=== PATIENT | male | born 1945 | race Caucasian/White ===

== ENCOUNTER 2017-08-16 16:20 | Emergency (ER) | payer MEDICARE, MEDICAID ==
[2017-08-16 16:37] VITALS: BP 138/90
[2017-08-16] MEDS ORDERED: Ketorolac 60 MG/2 ML SDV IM ONE (17:18)
[2017-08-16] MEDS ORDERED: Cyclobenzaprine 10 MG Tab PO ONE (17:25)
--- NOTE | 2017-08-16 18:02 | EDM.PDOC ---
ED HPI GENERAL MEDICAL PROBLEM - General Chief Complaint: Back Pain or Injury Stated Complaint: L FLANK PAIN Time Seen by Provider: 08/16/17 17:58 Source of Information: Reports: Patient, Family History Limitations: Reports: No Limitations - History of Present Illness INITIAL COMMENTS - FREE TEXT/NARRATIVE: pt arrived with pain in the left laterl chest. He fell and hit the left chest on the coffee table. He has a definte bruise present. Onset: Other (pt fell last nite. ) Duration: Hour(s): Location: Reports: Chest Associated Symptoms: Reports: Chest Pain, Other (pain with deep breathing. ) Left Back Pain Score (Numeric/FACES): 8 - Related Data Allergies Allergy/AdvReac Type Severity Reaction Status Date / Time Penicillins AdvReac Syncope Verified 03/07/16 08:59 Home Meds: Home Meds Gabapentin [Neurontin] 400 mg PO 5XDAY 03/06/16 [History] Hydrochlorothiazide 25 mg PO DAILY 03/06/16 [History] Metoprolol Tartrate 50 mg PO BID 03/06/16 [History] Past Medical History HEENT History: Reports: Impaired Vision Cardiovascular History: Reports: Hypertension Genitourinary History: Reports: Prostate Disorder Musculoskeletal History: Reports: Arthritis, Back Pain, Chronic Oncologic (Cancer) History: Reports: Leukemia Other Oncologic History: 2004 [facility] - Infectious Disease History Infectious Disease History: Reports: Chicken Pox - Past Surgical History GI Surgical History: Reports: Hernia Repair/Other Musculoskeletal Surgical History: Reports: Other (See Below) Other Musculoskeletal Surgeries/Procedures:: back surgery x 2 Social & Family History - Tobacco Use Smoking Status *Q: Light Tobacco Smoker Years of Tobacco use: 30 Packs/Tins Daily: 0.5 Used Tobacco, but Quit: Yes Month Tobacco Last Used: October, Second Hand Smoke Exposure: No - Caffeine Use Caffeine Use: Reports: Coffee - Alcohol Use Days Per Week of Alcohol Use: 2 Number of Drinks Per Day: 3 Total Drinks Per Week: 6 - Recreational Drug Use Recreational Drug Use: No ED ROS GENERAL - Review of Systems Review Of Systems: See Below Constitutional: Reports: No Symptoms HEENT: Reports: No Symptoms Respiratory: Reports: No Symptoms Cardiovascular: Reports: No Symptoms Endocrine: Reports: No Symptoms GI/Abdominal: Reports: No Symptoms : Reports: No Symptoms Musculoskeletal: Reports: Other ( Pain in left chest in the area of the bruis) Skin: Reports: No Symptoms Neurological: Reports: No Symptoms Psychiatric: Reports: No Symptoms Immunologic: Reports: No Symptoms ED EXAM,LOWER BACK PAIN/INJURY - Physical Exam Exam: See Below Text/Narrative:: pt fell last nite and hit the left chest on a coffee table. Exam Limited By: No Limitations General Appearance: Alert, Anxious Ears: Normal TMs Nose: Normal Inspection Throat/Mouth: Normal Inspection Head: Atraumatic Neck: Normal Inspection Respiratory/Chest: Other ( pain in the left chest . Hurts to take a deep breath. r) Cardiovascular: Regular Rate, Rhythm GI/Abdominal: Soft, Non-Tender (Male) Exam: Deferred Rectal (Males) Exam: Deferred Back Exam: Normal Inspection Extremities: Normal Inspection Neurological: Alert, Oriented x 3 Course - Vital Signs Last Recorded V/S: Last Vital Signs Temp 36.6 C 08/16/17 16:52 Pulse 92 08/16/17 16:52 Resp 16 08/16/17 16:52 BP 138/90 08/16/17 16:52 Pulse Ox 98 08/16/17 16:52 - Orders/Labs/Meds Meds: Medications Discontinued Medications Generic Name Dose Route Start Last Admin Trade Name Freq PRN Reason Stop Dose Admin Cyclobenzaprine HCl 10 mg 08/16/17 17:25 08/16/17 17:31 Flexeril PO 08/16/17 17:26 10 mg ONETIME ONE Administration Ketorolac Tromethamine 60 mg 08/16/17 17:18 08/16/17 17:31 Toradol IM 08/16/17 17:19 60 mg ONETIME ONE Administration - Re-Assessments/Exams Free Text/Narrative Re-Assessment/Exam: 08/16/17 18:11 pt was given torodol 60mg im. His xrays show a definite fracture in the 9th rib. ,.. Departure - Departure Time of Disposition: 18:17 Disposition: Home, Self-Care 01 Condition: Fair Clinical Impression: Fractured rib - Discharge Information Instructions: Rib Fracture, [id number] Referrals: Jay Gilbert Sr, MD [Primary Care Provider] - Forms: ED Department Discharge Care Plan Goals: rib binder, encourage deep breathing, cool pack to the left rib cage area, cont same meds, tramodol 50mg q6h prn for pain.
--- NOTE | 2017-08-17 09:54 | CR ---
Ribs 2V w Chest Lt INDICATION: Pain in left rib cage area. FINDINGS: Healed or healing left seventh rib fracture. Pleural thickening left costophrenic angle wit h atelectasis in the left lung base. Chest otherwise negative.
== END 2017-08-16 19:01 | disposition home or self-care (01) ==
LOC: JP.ED 16:20
DX: S22.32XA Fracture of one rib, left side, initial encounter for closed fracture (principal); F17.210 Nicotine dependence, cigarettes, uncomplicated; I10 Essential (primary) hypertension; Z85.6 Personal history of leukemia; Z98.890 Other specified postprocedural states; Z79.899 Other long term (current) drug therapy; Z88.0 Allergy status to penicillin; W01.190A Fall on same level from slipping, tripping and stumbling with subsequent striking against furniture, initial encounter
CPT/HCPCS: 71101; 96372; 99284; A9270; J1885; 99283

== ENCOUNTER 2021-06-03 08:24 | Emergency (ER) | payer MEDICARE ==
[2021-06-03 08:53] VITALS: BP 178/96; PULSE 111
--- NOTE | 2021-06-03 10:41 | EDM.PDOC ---
ED HPI GENERAL MEDICAL PROBLEM - General Chief Complaint: Back Pain or Injury Stated Complaint: BACK PAIN Time Seen by Provider: 06/03/21 10:30 Source of Information: Reports: Patient, Family History Limitations: Reports: No Limitations - History of Present Illness INITIAL COMMENTS - FREE TEXT/NARRATIVE: 75-year-old male with a history of severe lumbosacral spine disease noted on MRI some years ago continues with chronic pain and was on 8 mg Dilaudid 4 times a day for pain. He is now been off of 3 years. He has seen the pain specialist bryan Mcdaniel apparently. Recently has been falling down as he is very unsteady on his feet. He fell few days ago and had a lumbosacral spine x-ray which showed degenerative changes apparently. He is here now today because he really cannot function because the pain is so severe with pain down his legs although that is not new. He otherwise is eating other review of systems appear to be negative. His problem is primarily with his back chronic in nature with a history of surgery at [facility] as well - Related Data Allergies Allergy/AdvReac Type Severity Reaction Status Date / Time Penicillins AdvReac Syncope Verified 06/03/21 08:53 Home Meds: Home Meds Metoprolol Tartrate 50 mg PO BID 03/06/16 [History] hydroCHLOROthiazide [Hydrochlorothiazide] 25 mg PO DAILY 03/06/16 [History] Past Medical History HEENT History: Reports: Impaired Vision Cardiovascular History: Reports: Hypertension Genitourinary History: Reports: Prostate Disorder Musculoskeletal History: Reports: Arthritis, Back Pain, Chronic Oncologic (Cancer) History: Reports: Leukemia Other Oncologic History: 2005 [facility] - Infectious Disease History Infectious Disease History: Reports: Chicken Pox - Past Surgical History GI Surgical History: Reports: Hernia Repair/Other Musculoskeletal Surgical History: Reports: Other (See Below) Other Musculoskeletal Surgeries/Procedures:: back surgery x 2 Social & Family History - Tobacco Use Tobacco Use Status *Q: Unknown Ever Used Tobacco - Caffeine Use Caffeine Use: Reports: Coffee ED ROS GENERAL - Review of Systems Review Of Systems: Comprehensive ROS is negative, except as noted in HPI. ED EXAM,LOWER BACK PAIN/INJURY - Physical Exam Exam: See Below Text/Narrative:: 75-year-old male who is sitting on the chair complaining bitterly of pain and accompanied by a friend. Vital signs are noted and okay HEENT shows eyes ears nose throat appear to be normal pupils equal round reactive to light perhaps some diminished hearing Neck is supple normal range of motion Chest is clear with a regular rate and rhythm Abdomen soft active bowel sounds Thoracic back exam is negative. He has a lumbar old scar from prior surgery. He has some point tenderness on heavy pressure in the lower lumbar area on the right. He has ecchymosis and bruising on the left buttock. He has limited range of motion with your back there Skin exam is grossly normal Neurologic he can stand and walk but unsteady on his feet and uses crutches. Course - Vital Signs Last Recorded V/S: Last Vital Signs Temp 36.6 C 06/03/21 08:58 Pulse 111 H 06/03/21 08:58 Resp 18 06/03/21 08:58 BP 178/96 H 06/03/21 08:58 Pulse Ox 97 06/03/21 08:58 - Orders/Labs/Meds Meds: Medications Discontinued Medications Generic Name Dose Route Start Last Admin Trade Name Ghanshyamq PRN Reason Stop Dose Admin Hydromorphone HCl 2 mg 06/03/21 10:50 06/03/21 10:49 Hydromorphone 2 Mg Tab PO 06/03/21 10:51 2 mg Q3H ONE Administration Hydromorphone HCl 4 mg 06/03/21 12:15 06/03/21 12:33 Hydromorphone 2 Mg Tab PO 06/03/21 12:16 4 mg Q3H ONE Administration Departure - Departure Time of Disposition: 14:40 Disposition: Home, Self-Care 01 Condition: Good Clinical Impression: Back pain of lumbosacral region with sciatica - Discharge Information Referrals: Jay Gilbert Sr, MD [Primary Care Provider] - Forms: ED Department Discharge Sepsis Event Note (ED) - Evaluation Sepsis Screening Result: No Definite Risk - Focused Exam Vital Signs: Vital Signs Temp Pulse Resp BP Pulse Ox 06/03/21 08:58 36.6 C 111 H 18 178/96 H 97 06/03/21 08:52 36.6 C 111 H 18 178/96 H 97
[2021-06-03] MEDS ORDERED: HYDROmorphone 2 MG Tab PO ONE ×2 (10:50→12:15)
--- NOTE | 2021-06-03 11:36 | CT ---
Pelvis wo Cont CLINICAL HISTORY: Fall COMPARISON: None available TECHNIQUE: Multiple contiguous axial sections were obtained from the level of the iliac crests down to the pubic symphysis without without contrast. From these images 3D reconstructions were obtained and reviewed on a dedicated and independent workstation. Auto dosage reduction and iterative reconstruction techniques employed. FINDINGS: No fracture or dislocation is identified. Patient has severe degenerative changes in the lower lumbar spine. There is some mottled sclerosis of the right ilium abutting the SI joint. Sacrum appears intact. There is periarticular spurring in the hips as well as at the pubic symphysis. No mass or hematoma is identified. IMPRESSION: No fracture Mottled sclerosis in the medial right ilium extending to the SI joint. Chronology is uncertain. Prior studies are not available at this time. This may be related to previous bone graft donor site. Moderate degenerative changes with periarticular spurring
--- NOTE | 2021-06-03 11:43 | CT ---
Lumbar Spine wo Cont CLINICAL HISTORY: Fall, pain COMPARISON: None available TECHNIQUE: Multiple contiguous axial sections were obtained of the lumbar spine without the IV infusion of contrast material This was followed by sagittal and coronal MPRs. Auto dosage reduction and iterative reconstruction techniques employed. FINDINGS: Sagittal images show the lumbar vertebral body heights to be maintained. There is severe diffuse degenerative disc disease and significant spondylosis. There is minimal retrolisthesis of L2 on L3, L3 on L4 and L5 on S1. Patient has had previous laminectomies at L4 and L5. There has been previous fusion. Patient has a mild levoscoliosis. There is moderate disc osteophyte formation at L1-2 as well as posterior element hypertrophy. This causes moderate central canal stenosis. There is also lateral recess and neural foraminal encroachment. There is disc osteophyte formation at L2-3 with facet hypertrophy causing moderate central canal stenosis and encroachment on the lateral recesses and neural foramina bilaterally. There is disc osteophyte formation at L3-4. There is also some calcification near the longitudinal ligament extending downward. This causes some central canal stenosis. There is bony encroachment on the right neural foramina. There is fusion at the L4-5 disc. There is broad-based disc protrusion at L5-S1 encroaching on the thecal sac. This also some posterior element hypertrophy causing encroachment on the neural foramina and lateral recesses bilaterally. 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 Multiple levels of central canal stenosis lateral recess and neural foraminal encroachment
== END 2021-06-03 14:54 | disposition home or self-care (01) ==
LOC: JP.ED 08:24
DX: M54.41 Lumbago with sciatica, right side (principal); I10 Essential (primary) hypertension; M19.90 Unspecified osteoarthritis, unspecified site; Z88.0 Allergy status to penicillin; Z79.899 Other long term (current) drug therapy
CPT/HCPCS: 72131; 72192; 99283; A9270

== ENCOUNTER 2024-05-18 21:29 | Emergency (ER) | payer MEDICARE ==
[2024-05-18 22:55] VITALS: BP 116/69; PULSE 82
[2024-05-18] MEDS ORDERED: Sodium Chloride 0.9% 10 ML Syringe FLUSH PRN (23:08)
[2024-05-18] MEDS: Magnesium Sulfate/Water 2 GM in Premix Bag 1 BAG IV ONE (23:27)
[2024-05-18] MEDS: Sodium Chloride 0.9% 500 ML IV ONE (23:27)
== END 2024-05-19 02:06 | disposition home or self-care (01) ==
LOC: JP.ED 21:29
DX: E86.0 Dehydration (principal); E83.42 Hypomagnesemia; F03.90 Unspecified dementia, unspecified severity, without behavioral disturbance, psychotic disturbance, mood disturbance, and anxiety; I10 Essential (primary) hypertension; Z79.891 Long term (current) use of opiate analgesic; Z79.899 Other long term (current) drug therapy; Z88.0 Allergy status to penicillin; Z91.011 Allergy to milk products; Z88.6 Allergy status to analgesic agent
CPT/HCPCS: 96365; 96366; 99284; J3475; J7040

== ENCOUNTER 2024-05-27 18:40 | Emergency (ER) | payer MEDICARE ==
[2024-05-27 20:21] LABS: BASOPHILS PERCENT AUTO 0.1 % (0.1-1.3); HEMATOCRIT 48.2 % (38.4-49.7); HEMOGLOBIN 16.7 g/dL (12.9-16.9); IMMATURE GRAN ABSOLUTE AUTO 0.11 K/uL (0.00-0.23); IMMATURE GRAN PERCENT AUTO 0.6 % (0.0-0.7); LYMPHOCYTES ABSOLUTE AUTO 1.51 K/uL (0.8-3.3); LYMPHOCYTES PERCENT AUTO 8.3 % (11.4-47.7); MEAN CORPUSCULAR HEMOGLOBIN 31.6 pg (31.6-35.5); MEAN CORPUSCULAR HGB CONC 34.6 g/dL (31.6-35.5); MEAN CORPUSCULAR VOLUME 91.3 fL (81.4-99.0); MONOCYTES ABSOLUTE AUTO 1.22 K/uL (0.20-0.90); MONOCYTES PERCENT AUTO 6.7 % (3.3-12.6); NEUTROPHILS ABSOLUTE AUTO 15.26 K/uL (1.0-7.6); NEUTROPHILS PERCENT AUTO 84.3 % (40.0-78.1); PLATELET COUNT,PLT 148 K/uL (130-375); RED BLOOD CELL COUNT 5.28 M/uL (4.14-5.76); WHITE BLOOD CELL COUNT,WBC 18.1 K/uL (3.2-11.0)
[2024-05-27 20:35] LABS: BASOPHILS ABSOLUTE AUTO 0.02 K/uL (0.00-0.10)
[2024-05-27 20:47] LABS: A/G RATIO 0.6 (1.2-2.2); ALANINE AMINOTRANSFERASE,ALT 66 U/L (12-78); ALBUMIN 3.1 g/dL (3.4-5.0); ALKALINE PHOSPHATASE 72 U/L (46-116); ASPARTATE AMNIOTRANSFERASE,AST 36 U/L (15-37); BILIRUBIN TOTAL 1.3 mg/dL (0.2-1.0); BLOOD UREA NITROGEN,BUN 18 mg/dL (7-18); CALCIUM 8.8 mg/dL (8.5-10.1); CARBON DIOXIDE,CO2 32 mmol/L (21-32); CREATININE 1.7 mg/dL (0.8-1.3); EST CRCL DRUG DOSING (CG) 32.32 mL/min; ESTIMATED GFR 41 mL/min (>60); GLUCOSE RANDOM 144 mg/dL (74-106); PROTEIN TOTAL,TP 8.2 g/dL (6.4-8.2); TROPONIN I HIGH SENSITIVITY 9.2 pg/mL (<=60.3)
[2024-05-27 20:49] LABS: POTASSIUM,K 3.5 mmol/L (3.6-5.2); SODIUM,NA 142 mmol/L (140-148)
[2024-05-27] MEDS: Sodium Chloride 0.9% 1,000 ML IV SCH (21:53)
[2024-05-27] MEDS: Sodium Chloride 0.9% 10 ML Syringe FLUSH ONE (22:12)
[2024-05-27] MEDS: Iopamidol 612 MG/ML 100 ML Bottle IV SCH (22:12)
[2024-05-27] MEDS: Sodium Chloride 0.9% 100 ML IV SCH (22:12)
[2024-05-28 00:04] VITALS: BP 153/87; PULSE 93
[2024-05-28] MEDS: cefTRIAXone 2 GM in Sodium Chloride 0.9% 50 ML IV ONE (00:36)
[2024-05-28] MEDS: Doxycycline 100 MG Cap PO ONE (00:37)
== END 2024-05-28 01:25 | disposition home or self-care (01) ==
LOC: JP.ED 18:40
DX: J18.9 Pneumonia, unspecified organism (principal); I10 Essential (primary) hypertension; Z87.891 Personal history of nicotine dependence; Z79.899 Other long term (current) drug therapy; Z79.891 Long term (current) use of opiate analgesic; Z88.0 Allergy status to penicillin; Z88.8 Allergy status to other drugs, medicaments and biological substances; Z91.011 Allergy to milk products
CPT/HCPCS: 36415; 71260; 74177; 80053; 83605; 83690; 83735; 84484; 85025; 86140; 93005; 96361; 96365; 99285; A9270; J0696; J3490; J7030; Q9967

== ENCOUNTER 2024-06-08 08:33 | Day surgery (SDC) | payer MEDICARE ==
[~2024-06-08 08:33] MED LIST: Propofol 200 MG/20 ML SDV ONE; fentaNYL 50 MCG/ML SDV ONE
[2024-06-08] MEDS: Sodium Chloride 0.9% 1,000 ML IV SCH (09:44)
[2024-06-08 11:48] VITALS: BP 129/87; PULSE 71
== END 2024-06-08 12:20 | disposition home or self-care (01) ==
LOC: JP.SDS 08:33
PROVIDERS: ATTEND Surgery
DX: D12.5 Benign neoplasm of sigmoid colon (principal); Z88.0 Allergy status to penicillin; Z88.6 Allergy status to analgesic agent
CPT/HCPCS: 00813; 43239; 45385; 88305; 88313; J2704; J3010; J7030